=== PATIENT | female | born 1945 | race African-American/Black ===

== ENCOUNTER → 2016-04-30 | Outpatient (CLI) | payer MEDICARE, MEDICAID ==
[~2016-04-30] MED LIST: ASPI81CH43 PO; Alprazolam PO; Atorvastatin Calcium PO; CITA20TA3 PO; ENA10T PO; FURO20TA PO; MET50T PO; METF-312 PO; PANT40TA2 PO
[2016-04-30 13:30] LABS: Basophils # (auto) 0 uL; Basophils % (auto) 0.5 % (0.0-2.0); Eosinophils # (auto) 0.1 uL; Eosinophils % (auto) 1.2 % (0.0-7.0); Hematocrit 35.3 % (36.0-46.0); Hemoglobin 11.7 g/dL (12.2-16.2); Lymphocytes # (auto) 2.1 uL; Lymphocytes % (auto) 44.6 % (10.0-50.0); Mean Corpuscular Hemoglobin 30.1 pg (28.0-32.0); Mean Corpuscular Hgb Conc. 33.2 g/dL (32.0-36.0); Mean Corpuscular Volume 90.9 fL (80.0-100.0); Monocytes # (auto) 0.2 uL; Monocytes % (auto) 5.1 % (0.0-12.0); Neutrophils # (auto) 2.3 uL; Neutrophils % (auto) 48.6 % (37.0-80.0); Platelet Count (auto) 319 10^3/uL (140-450); Red Cell Distribution Width 15.6 % (11.6-16.0); White Blood Cell 4.7 10^3/uL (4.4-10.8)
[2016-04-30 14:37] LABS: Albumin 3.4 g/dL (3.4-5.0); Alkaline Phosphatase 74 U/L (45-117); Anion Gap 10 (5-15); Aspartate Aminotransferase 14 U/L (15-37); BUN/Creatinine Ratio 11.5; Bilirubin, Total 0.6 mg/dL (0.2-1.0); Blood Urea Nitrogen 7 mg/dL (7-18); Calcium 9.2 mg/dL (8.5-10.1); Carbon Dioxide 30 mmol/L (21-32); Chloride 107 mmol/L (98-107); GFR African American 124 mL/min; GFR Non-African American 102 mL/min; Glucose 77 mg/dL (74-106); Potassium 4.1 mmol/L (3.5-5.1); Sodium 147 mmol/L (136-145); Total Protein 6.7 g/dL (6.4-8.2)
== END | disposition home or self-care (01) ==
LOC: LAB 11:23
PROVIDERS: ATTEND Internal Medicine
DX: E10.9 Type 1 diabetes mellitus without complications (principal)
CPT/HCPCS: 36415; 80053; 82607; 83036; 83540; 84443; 84484; 85025

== ENCOUNTER → 2016-06-21 | Outpatient (CLI) | payer MEDICARE, MEDICAID ==
[2016-06-21 16:45] LABS: Basophils # (auto) 0.1 uL; Basophils % (auto) 1.2 % (0.0-2.0); Eosinophils # (auto) 0.1 uL; Hematocrit 35.9 % (36.0-46.0); Lymphocytes # (auto) 2.7 uL; Lymphocytes % (auto) 47.5 % (10.0-50.0); Mean Corpuscular Hemoglobin 29.8 pg (28.0-32.0); Mean Corpuscular Hgb Conc. 33.4 g/dL (32.0-36.0); Mean Corpuscular Volume 89.3 fL (80.0-100.0); Mean Platelet Volume 9.1 fL (7.4-10.4); Monocytes # (auto) 0.2 uL; Monocytes % (auto) 4.3 % (0.0-12.0); Neutrophils # (auto) 2.6 uL; Platelet Count (auto) 296 10^3/uL (140-450); Red Cell Distribution Width 14.4 % (11.6-16.0); White Blood Cell 5.7 10^3/uL (4.4-10.8)
[2016-06-21 17:13] LABS: Albumin 3.7 g/dL (3.4-5.0); Alkaline Phosphatase 75 U/L (45-117); Anion Gap 10 (5-15); Aspartate Aminotransferase 20 U/L (15-37); Bilirubin, Total 0.8 mg/dL (0.2-1.0); Blood Urea Nitrogen 7 mg/dL (7-18); Calcium 9.3 mg/dL (8.5-10.1); Carbon Dioxide 28 mmol/L (21-32); Chloride 105 mmol/L (98-107); GFR African American 106 mL/min; GFR Non-African American 87 mL/min; Glucose 138 mg/dL (74-106); Potassium 4.3 mmol/L (3.5-5.1); Sodium 143 mmol/L (136-145); Total Protein 7.5 g/dL (6.4-8.2)
== END | disposition home or self-care (01) ==
LOC: LAB 16:00
PROVIDERS: ATTEND Internal Medicine Cardiovascular Disease
DX: R07.89 Other chest pain (principal)
CPT/HCPCS: 36415; 80053; 84484; 85025; 85379

== ENCOUNTER 2016-08-09 07:54 | Day surgery (SDC) | payer MEDICARE, MEDICAID ==
[2016-08-05 12:42] LABS: Basophils # (auto) 0 uL; Basophils % (auto) 0.2 % (0.0-2.0); Eosinophils # (auto) 0 uL; Eosinophils % (auto) 0.7 % (0.0-7.0); Hematocrit 35.9 % (36.0-46.0); Hemoglobin 12.5 g/dL (12.2-16.2); Lymphocytes # (auto) 2.3 uL; Lymphocytes % (auto) 47.6 % (10.0-50.0); Mean Corpuscular Hgb Conc. 34.8 g/dL (32.0-36.0); Mean Platelet Volume 9.3 fL (7.4-10.4); Monocytes # (auto) 0.2 uL; Monocytes % (auto) 3.5 % (0.0-12.0); Neutrophils # (auto) 2.3 uL; Platelet Count (auto) 258 10^3/uL (140-450); Red Cell Distribution Width 14.2 % (11.6-16.0); White Blood Cell 4.9 10^3/uL (4.4-10.8)
[2016-08-05 12:53] LABS: INR 0.92 (0.9-1.15); Partial Thromboplastin Time 24.1 sec (22.64-33.71)
[~2016-08-09] VITALS: Ht 160 cm; Wt 71.7 kg
[~2016-08-09 07:54] MED LIST changes: +ATOR10TA52 PO; -Alprazolam PO; -Atorvastatin Calcium PO; -CITA20TA3 PO; +CLON05T PO; +CYAN500T15 PO; -ENA10T PO; +HYDR-4663 PO; -MET50T PO; -METF-312 PO; +METF-370 PO; +METO25TA5 PO; +RISP0.5T45 PO; +SERT-274 PO; +SUCR1TAB38 OR; +TRAZ150T79 PO
[2016-08-09 10:04] LABS: BUN/Creatinine Ratio 12.5; Calcium 9.2 mg/dL (8.5-10.1); Potassium 3.7 mmol/L (3.5-5.1)
[2016-08-09] MEDS ORDERED: ONDANSETRON HCL 4 MG/2 ML VIAL IV ONE (11:10)
[2016-08-09] MEDS ORDERED: KETAMINE HCL 1 ML ONE ×2 (11:10→11:13)
[2016-08-09] MEDS ORDERED: DEXAMETHASONE SOD PHOS 10MG/1ML VIAL INJ IV ONE (11:10)
[2016-08-09] MEDS ORDERED: KETOROLAC TROMETH 60MG/2ML VIAL IM ONE (11:10)
[2016-08-09 12:14] VITALS: BP 155/90
== END 2016-08-09 12:24 | disposition home or self-care (01) ==
LOC: GI 07:54
PROVIDERS: ATTEND Internal Medicine Gastroenterology
PROC: 0DJ08ZZ Inspection of Upper Intestinal Tract, Via Natural or Artificial Opening Endoscopic (ICD-10-PCS; principal; 2016-08-09 11:10)
DX: R10.13 Epigastric pain (principal); Z95.0 Presence of cardiac pacemaker; Z90.710 Acquired absence of both cervix and uterus; E11.9 Type 2 diabetes mellitus without complications; F31.9 Bipolar disorder, unspecified; F32.9 Major depressive disorder, single episode, unspecified; F41.9 Anxiety disorder, unspecified
CPT/HCPCS: 36415; 43235; 80048; 85025; 85610; 85730; J1100; J1885; J2405; J7030

== ENCOUNTER → 2016-09-02 | Outpatient (CLI) | payer MEDICARE, MEDICAID ==
[2016-09-02 14:17] LABS: Basophils # (auto) 0 uL; Basophils % (auto) 0.5 % (0.0-2.0); CONDITION Y; Eosinophils # (auto) 0 uL; Eosinophils % (auto) 0.7 % (0.0-7.0); Hematocrit 34.8 % (36.0-46.0); Hemoglobin 11.9 g/dL (12.2-16.2); Lymphocytes % (auto) 48.9 % (10.0-50.0); Mean Corpuscular Hemoglobin 30.8 pg (28.0-32.0); Mean Corpuscular Volume 90.5 fL (80.0-100.0); Mean Platelet Volume 9.4 fL (7.4-10.4); Monocytes # (auto) 0.3 uL; Monocytes % (auto) 5.2 % (0.0-12.0); Neutrophils # (auto) 2.8 uL; Neutrophils % (auto) 44.7 % (37.0-80.0); Platelet Count (auto) 235 10^3/uL (140-450); Red Cell Distribution Width 14.4 % (11.6-16.0); SUSPECT SEE PRINTOUT; White Blood Cell 6.2 10^3/uL (4.4-10.8)
[2016-09-02 14:24] LABS: Albumin 3.5 g/dL (3.4-5.0); BUN/Creatinine Ratio 10.6; Bilirubin, Total 0.4 mg/dL (0.2-1.0); Calcium 8.8 mg/dL (8.5-10.1); Potassium 3.5 mmol/L (3.5-5.1); Total Protein 6.6 g/dL (6.4-8.2)
== END | disposition home or self-care (01) ==
LOC: LAB 13:36
PROVIDERS: ATTEND Internal Medicine
DX: E11.9 Type 2 diabetes mellitus without complications (principal); I10 Essential (primary) hypertension
CPT/HCPCS: 36415; 80053; 83036; 85025; 85379

== ENCOUNTER 2020-01-20 10:01 | Inpatient (IN) | payer MEDICAID, MEDICARE ==
[~2020-01-20] VITALS: Ht 165.1 cm; Wt 83.0 kg
[~2020-01-20 10:01] MED LIST changes: +AMLO-483 PO; +ASPI81CH43 GT; +CLON0.5T3 PO; -CLON05T PO; +DOCU100T15 PO; +DONE5TAB31 PO; +FURO1TAB33 PO; -FURO20TA PO; +FURO20TA3 PO; -HYDR-4663 PO; +HYDR-4833 PO; +LORA0.5T20 PO; +SUCR1TAB22 OR; -SUCR1TAB38 OR; -TRAZ150T79 PO; +TRAZ1TAB12 PO
[2020-01-20 11:17] LABS: Basophils # (auto) 0 10 ^3/uL (0-0.2); Basophils % (auto) 0.1 % (0.0-2.0); Eosinophils # (auto) 0 10 ^3/uL (0-0.8); Hematocrit 33.8 % (36.0-46.0); Hemoglobin 11.1 g/dL (12.2-16.2); Lymphocytes # (auto) 1.3 10 ^3/uL (0.4-5.4); Lymphocytes % (auto) 22.6 % (10.0-50.0); Mean Corpuscular Hemoglobin 29.2 pg (28.0-32.0); Mean Corpuscular Hgb Conc. 32.9 g/dL (32.0-36.0); Mean Corpuscular Volume 88.7 fL (80.0-100.0); Monocytes # (auto) 0.5 10 ^3/uL (0-1.3); Neutrophils # (auto) 3.9 10 ^3/uL (1.6-8.6); Neutrophils % (auto) 69.3 % (37.0-80.0); Platelet Count (auto) 240 10^3/uL (140-450); Red Blood Cells 3.81 10^6/uL (4.0-5.20); Red Cell Distribution Width 15.4 % (11.8-14.3); White Blood Cell 5.6 10^3/uL (4.4-10.8)
[2020-01-20] MEDS ORDERED: PANTOPRAZOLE 40 MG/10 ML VIAL INJ IV ONE (11:30)
[2020-01-20] MEDS ORDERED: DOXYCYCLINE 100MG/250ML 250 ML IV ONE (11:30)
[2020-01-20] MEDS ORDERED: DexAMETHasone SOD PHOS 10MG/1ML VIAL INJ IV ONE (11:30)
[2020-01-20 11:35] LABS: Lactic Acid w/Reflex 2.9 mmol/L (0.4-2.0)
[2020-01-20 11:43] LABS: Albumin 3.2 g/dL (3.4-5.0); Anion Gap 7 (5-15); Blood Urea Nitrogen 9 mg/dL (7-18); Calcium 8.3 mg/dL (8.5-10.1); Carbon Dioxide 21 mmol/L (21-32); Chloride 104 mmol/L (98-107); Glucose 163 mg/dL (74-106); Potassium 3.7 mmol/L (3.5-5.1); Sodium 132 mmol/L (136-145)
[2020-01-20 11:48] LABS: Alanine Aminotransferase 21 U/L (13-56); Alkaline Phosphatase 57 U/L (45-117); Aspartate Aminotransferase 21 U/L (15-37); BUN/Creatinine Ratio 11.8; Bilirubin, Total 0.4 mg/dL (0.2-1.0); GFR African American 95 mL/min; GFR Non-African American 79 mL/min; Total Protein 6.9 g/dL (6.4-8.2)
[2020-01-20] MEDS ORDERED: ONDANSETRON HCL 4 MG/2 ML VIAL IV PRN (12:15)
[2020-01-20] MEDS ORDERED: ACETAMINOPHEN 500 MG TAB PO PRN (12:15)
[2020-01-20] MEDS ORDERED: DOCUSATE SOD 100 MG CAP PO PRN (12:15)
[2020-01-20] MEDS: SODIUM CHLORIDE 0.9% 1,000 ML IV SCH ×2 (13:37→23:02)
[2020-01-20] MEDS: ALBUTEROL SULF HFA 90MCG INH 200DOSE IN SCH ×2 (14:00→22:11)
[2020-01-20] MEDS: DOXYCYCLINE 100MG/250ML 250 ML IV SCH (22:55)
[2020-01-21 03:54] VITALS: BP 154/61
[2020-01-21] MEDS: ALBUTEROL SULF HFA 90MCG INH 200DOSE IN SCH ×3 (06:00→22:28)
[2020-01-21] MEDS: SODIUM CHLORIDE 0.9% 1,000 ML IV SCH (08:15)
[2020-01-21 08:32] LABS: Basophils # (auto) 0 10 ^3/uL (0-0.2); Basophils % (auto) 0.5 % (0.0-2.0); Eosinophils # (auto) 0 10 ^3/uL (0-0.8); Hematocrit 32.8 % (36.0-46.0); Hemoglobin 10.8 g/dL (12.2-16.2); Lymphocytes # (auto) 1.1 10 ^3/uL (0.4-5.4); Mean Corpuscular Hemoglobin 28.7 pg (28.0-32.0); Mean Corpuscular Volume 86.8 fL (80.0-100.0); Monocytes # (auto) 0.4 10 ^3/uL (0-1.3); Monocytes % (auto) 9.6 % (0.0-12.0); Neutrophils # (auto) 3.1 10 ^3/uL (1.6-8.6); Neutrophils % (auto) 65.9 % (37.0-80.0); Nucleated Red Blood Cells % 0.1 %; Platelet Count (auto) 244 10^3/uL (140-450); Red Blood Cells 3.78 10^6/uL (4.0-5.20); Red Cell Distribution Width 14.9 % (11.8-14.3); White Blood Cell 4.6 10^3/uL (4.4-10.8)
[2020-01-21 08:54] LABS: Albumin 3.1 g/dL (3.4-5.0); BUN/Creatinine Ratio 13.1; Bilirubin, Total 0.4 mg/dL (0.2-1.0); Calcium 8.7 mg/dL (8.5-10.1); Potassium 3.9 mmol/L (3.5-5.1); Total Protein 6.7 g/dL (6.4-8.2)
[2020-01-21] MEDS: ASCORBIC ACID 1,000 MG TAB PO SCH (09:27)
[2020-01-21] MEDS: ZINC SULFATE 220mg CAP or TAB PO SCH (09:27)
[2020-01-21] MEDS: ENOXAPARIN SOD 40 MG/0.4 ML SYRINGE SC SCH (09:27)
[2020-01-21] MEDS: DOXYCYCLINE 100MG/250ML 250 ML IV SCH ×2 (09:27→23:44)
[2020-01-21] MEDS ORDERED: HYDROcodone-ACET 10/325MG TAB PO ONE (14:30)
[2020-01-21] MEDS ORDERED: CHOLECALCIFEROL (VITD3) 2,000 UNIT CAP PO ONE (14:45)
[2020-01-21] MEDS ORDERED: metroNIDAZOLE 500 MG TAB PO ONE (14:45)
[2020-01-21] MEDS ORDERED: DEXTROSE (50%) 50ML SYRG IV PRN (14:45)
[2020-01-21] MEDS ORDERED: BUDESONIDE (INHALATION) 0.5 MG/2 ML NEB NEB ONE (15:00)
[2020-01-21] MEDS: InsuLIN REG 1unit/0.01ml Soln (100units/ml) SC SCH (18:00)
[2020-01-21] MEDS: ACCU-CHEK COMFORT CURVE STRIP VI SCH (18:11)
[2020-01-21] MEDS ORDERED: BUDESONIDE (INHALATION) 0.5 MG/2 ML NEB NEB SCH (22:00)
[2020-01-21] MEDS: BUDESONIDE (INHALATION) 180 MCG IH IN SCH (22:28)
[2020-01-21] MEDS: ATORVASTATIN 20 MG TAB PO SCH (23:45)
[2020-01-21] MEDS: metroNIDAZOLE 500 MG TAB PO SCH (23:45)
[2020-01-22] VITALS (7 sets, daily range): BP systolic 104–145; BP diastolic 55–81
[2020-01-22] MEDS: ACCU-CHEK COMFORT CURVE STRIP VI SCH ×3 (00:07→11:22)
--- NOTE | 2020-01-22 00:30 | NUR ---
Telemetry admit from ER MARTIN WISE admitted to Telemetry unit. Patient oriented to Yuridia Levy RN primary RN, unit, room, bed, and unit policies regarding patient care and visiting hours. Patient now on continuous telemetry monitoring, tele box #25. Patient placed on bedside oxygen, weighed by bed scale and encouraged to call if they need something. All questions and concerns addressed, patient verbalized understanding. Bed is in lowest locked position with bed rails up x2 and call light is within reach. Bed alarm is armed.
[2020-01-22] MEDS: ACETAMINOPHEN 325 MG TAB PO PRN (00:55)
[2020-01-22] MEDS: metroNIDAZOLE 500 MG TAB PO SCH ×3 (05:30→21:24)
[2020-01-22] MEDS: InsuLIN REG 1unit/0.01ml Soln (100units/ml) SC SCH ×3 (05:44→11:21)
[2020-01-22] MEDS: BUDESONIDE (INHALATION) 180 MCG IH IN SCH ×2 (06:08→22:20)
[2020-01-22] MEDS: ALBUTEROL SULF HFA 90MCG INH 200DOSE IN SCH ×3 (06:08→22:20)
--- NOTE | 2020-01-22 08:30 | NUR ---
Respiratory note: PT FIO2 TITRATED TO 1L NASAL CANNULA. PT TOLERATED CHANGE WELL. SPO2 96%, HR 72, RR 20. RN AWARE. WILL CONTINUE TO MONITOR PT.
[2020-01-22] MEDS: ZINC SULFATE 220mg CAP or TAB PO SCH (11:18)
[2020-01-22] MEDS: ASPirin 81 mg TAB PO SCH (11:18)
[2020-01-22] MEDS: FLORASTOR (S. BOULARDII) 250 MG CAP PO SCH (11:18)
[2020-01-22] MEDS: DOXYCYCLINE 100MG/250ML 250 ML IV SCH ×2 (11:18→21:24)
[2020-01-22] MEDS: amLODIPine BESYLATE 5 MG TAB PO SCH (11:19)
[2020-01-22] MEDS: ASCORBIC ACID 1,000 MG TAB PO SCH (11:19)
[2020-01-22] MEDS: CYANOCOBALAMIN 500 MCG TAB PO SCH (11:19)
[2020-01-22] MEDS: SERTRALINE HCL 50 MG TAB PO SCH (11:20)
[2020-01-22] MEDS: CHOLECALCIFEROL (VITD3) 2,000 UNIT CAP PO SCH (11:20)
[2020-01-22] MEDS: FAMOTIDINE 20 MG TAB PO SCH (11:20)
[2020-01-22] MEDS: ENOXAPARIN SOD 40 MG/0.4 ML SYRINGE SC SCH (11:21)
--- NOTE | 2020-01-22 12:31 | NUR ---
Nutrition Assessment Notes Please refer to link for full assessment notes. Est Energy needs: 7112-1864 kcals (20-23 kcal/kgBW) Est Protein needs: 80-88 gms/day (1.0-1.1 gm/kgBW) Will continue to monitor and reassess prn. Addendum: 01/22/20 at [address] Amended: Links added.
--- NOTE | 2020-01-22 19:40 | NUR ---
IV ACCESS ON THE LEFT AC IS INFILTRATED. REMOVED AND APPLIED A STERILE DRESSING. STARTED A NEW IV ACCESS ON THE LEFT INNER WRIST, GAUGE 24. BENIGN AND PATENT.
[2020-01-22] MEDS: ATORVASTATIN 20 MG TAB PO SCH (21:24)
[2020-01-23 05:17] VITALS: BP 138/69
[2020-01-23] MEDS: metroNIDAZOLE 500 MG TAB PO SCH (05:41)
[2020-01-23] MEDS: ACETAMINOPHEN 325 MG TAB PO PRN (05:42)
[2020-01-23 05:44] VITALS: BP 138/69
[2020-01-23 05:52] LABS: Basophils # (auto) 0 10 ^3/uL (0-0.2); Basophils % (auto) 0.2 % (0.0-2.0); Eosinophils # (auto) 0 10 ^3/uL (0-0.8); Hematocrit 36.6 % (36.0-46.0); Hemoglobin 11.8 g/dL (12.2-16.2); Lymphocytes # (auto) 1.3 10 ^3/uL (0.4-5.4); Lymphocytes % (auto) 41.4 % (10.0-50.0); Mean Corpuscular Hemoglobin 28.6 pg (28.0-32.0); Mean Corpuscular Hgb Conc. 32.3 g/dL (32.0-36.0); Mean Corpuscular Volume 88.6 fL (80.0-100.0); Monocytes # (auto) 0.5 10 ^3/uL (0-1.3); Monocytes % (auto) 17.7 % (0.0-12.0); Neutrophils # (auto) 1.2 10 ^3/uL (1.6-8.6); Neutrophils % (auto) 40.7 % (37.0-80.0); Nucleated Red Blood Cells % 0.3 %; Platelet Count (auto) 215 10^3/uL (140-450); Red Blood Cells 4.14 10^6/uL (4.0-5.20); Red Cell Distribution Width 15.2 % (11.8-14.3)
[2020-01-23 06:07] LABS: BUN/Creatinine Ratio 10.3; Calcium 8.3 mg/dL (8.5-10.1); Potassium 3.6 mmol/L (3.5-5.1)
[2020-01-23] MEDS: ALBUTEROL SULF HFA 90MCG INH 200DOSE IN SCH ×2 (06:59→13:35)
[2020-01-23] MEDS: BUDESONIDE (INHALATION) 180 MCG IH IN SCH (06:59)
--- NOTE | 2020-01-23 08:05 | NUR ---
Opening Shift Note Received report from speeder frame tender nurse Nars,Assumed care of patient, awake and alert. No S/S of distress/SOB or pain. Patient on/off nasal cannula set at 2L. Bed alarm on, bed at lowest position, call light within reach. Instructed on POC and to call for assist PRN, will continue to monitor for changes Q1hr and PRN.
[2020-01-23 08:41] VITALS: BP 124/75
[2020-01-23] MEDS: SERTRALINE HCL 50 MG TAB PO SCH (10:00)
[2020-01-23] MEDS: ASPirin 81 mg TAB PO SCH (10:00)
[2020-01-23] MEDS: FLORASTOR (S. BOULARDII) 250 MG CAP PO SCH (10:00)
[2020-01-23] MEDS: amLODIPine BESYLATE 5 MG TAB PO SCH (10:00)
[2020-01-23] MEDS: FAMOTIDINE 20 MG TAB PO SCH (10:00)
[2020-01-23] MEDS: ASCORBIC ACID 1,000 MG TAB PO SCH (10:00)
[2020-01-23] MEDS: CYANOCOBALAMIN 500 MCG TAB PO SCH (10:00)
[2020-01-23] MEDS: DOXYCYCLINE 100MG/250ML 250 ML IV SCH (10:00)
[2020-01-23] MEDS: CHOLECALCIFEROL (VITD3) 2,000 UNIT CAP PO SCH (10:00)
[2020-01-23] MEDS: ZINC SULFATE 220mg CAP or TAB PO SCH (10:00)
[2020-01-23] MEDS: ENOXAPARIN SOD 40 MG/0.4 ML SYRINGE SC SCH (10:00)
[2020-01-23 12:24] VITALS: BP 130/63
--- NOTE | 2020-01-23 12:47 | NUR ---
MD DÍAZ AT BEDSIDE PATIENT UPDATED ON POC, PER MD PATIENT IS READY TO BE DISCHARGED WITH HOME OXYGEN. PATIENT VERBALIZED UNDERSTANDING.
--- NOTE | 2020-01-23 15:02 | NUR ---
Medicare IM Patient is on the covid unit and is covid positive. Kim ZHONG has been provided with IM for patient to sign and place in chart. Addendum: 01/23/20 at 1506 by Jessica HOOVER Amended: Links added.
--- NOTE | 2020-01-23 15:03 | NUR ---
ss consult Per ss consult dc to SNF. Per patient she is requesting to return to [facility]. MD order has been sent to [facility]. Waiting on return call now. Addendum: 01/23/20 at 1506 by Jessica HOOVER Amended: Links added.
--- NOTE | 2020-01-23 16:03 | NUR ---
re-assessment Per Tahmina at [facility] she cannot take any Covid positive patients at this time. MD order has been re-directed to [facility]. Per Tricia at [facility] she has accepted patient to room [address] Acosta is the accepting MD. Safety care transport will transport patient between 7pm and 8pm today post discharge. Patient agrees and Yovani MOREL has been notified. Addendum: 01/23/20 at 1606 by Jessica HOOVER Amended: Links added.
[2020-01-23 16:12] VITALS: BP 138/90
[2020-01-23 17:00] VITALS: BP 134/87
--- NOTE | 2020-01-23 21:30 | NUR ---
Discharge Transfers Patient is being transferred to [facility]. IV removed with catheter intact, patient tolerated well. Tele box removed and sent back. Patient is to follow up with accepting doctor at the receiving facility.
== END 2020-01-23 21:11 | DRG 177 ==
LOC: ER 10:01 → EDBD 10:01 → TELE 10:02 → TELE-E-ADS 01-21 23:52 → TELE-CENTR 01-22 19:02
PROVIDERS: ADMIT Hospitalist; ATTEND Internal Medicine
DX: U07.1 COVID-19 (principal); J12.89 Other viral pneumonia; G93.41 Metabolic encephalopathy; J96.00 Acute respiratory failure, unspecified whether with hypoxia or hypercapnia; J44.1 Chronic obstructive pulmonary disease with (acute) exacerbation; J44.0 Chronic obstructive pulmonary disease with (acute) lower respiratory infection; E44.1 Mild protein-calorie malnutrition; I10 Essential (primary) hypertension; E78.5 Hyperlipidemia, unspecified; F41.9 Anxiety disorder, unspecified; K21.9 Gastro-esophageal reflux disease without esophagitis; E66.9 Obesity, unspecified; E11.9 Type 2 diabetes mellitus without complications; F32.9 Major depressive disorder, single episode, unspecified; F03.90 Unspecified dementia, unspecified severity, without behavioral disturbance, psychotic disturbance, mood disturbance, and anxiety; Z90.710 Acquired absence of both cervix and uterus; Z95.0 Presence of cardiac pacemaker; Z68.29 Body mass index [BMI] 29.0-29.9, adult; Z86.73 Personal history of transient ischemic attack (TIA), and cerebral infarction without residual deficits; Z82.49 Family history of ischemic heart disease and other diseases of the circulatory system; Z88.1 Allergy status to other antibiotic agents; Z88.0 Allergy status to penicillin
CPT/HCPCS: 36415; 71045; 80048; 80053; 82962; 83036; 83605; 83735; 83880; 84484; 85025; 85379; 87040; 87081; 87426; 87493; 93005; 94640; 96374; 96375; 97163; 99291; C9113; G0378; J1100; J2405; J3490

== ENCOUNTER 2020-06-08 12:56 | Inpatient (IN) | payer MEDICARE, MEDICAID ==
[~2020-06-08] VITALS: Ht 170.2 cm; Wt 73.5 kg
[~2020-06-08 12:56] MED LIST changes: -DONE5TAB31 PO; +DONE5TAB80 PO; -SERT-274 PO; +SERT50TA19 PO
[2020-06-08] MEDS ORDERED: SODIUM CHLORIDE 0.9% 1,000 ML IVB ONE (13:45)
[2020-06-08 15:35] LABS: Basophils # (auto) 0.1 10 ^3/uL (0-0.2); Monocytes # (auto) 0.5 10 ^3/uL (0-1.3); Neutrophils # (auto) 2.5 10 ^3/uL (1.6-8.6); Nucleated Red Blood Cells % 0.1 %; Red Cell Distribution Width 16.2 % (11.8-14.3); White Blood Cell 6.1 10^3/uL (4.4-10.8)
[2020-06-08 15:37] LABS: Basophils % (auto) 0.8 % (0.0-2.0); Eosinophils # (auto) 0 10 ^3/uL (0-0.8); Eosinophils % (auto) 0.8 % (0.0-7.0); Hematocrit 36.1 % (36.0-46.0); Hemoglobin 11.9 g/dL (12.2-16.2); Lymphocytes % (auto) 48.9 % (10.0-50.0); Mean Corpuscular Hgb Conc. 32.9 g/dL (32.0-36.0); Monocytes % (auto) 8.4 % (0.0-12.0); Neutrophils % (auto) 41.1 % (37.0-80.0)
[2020-06-08 15:41] LABS: Urine WBC None Seen /hpf (0 - 5)
[2020-06-08 15:50] LABS: INR 1.03 (0.9-1.15); Partial Thromboplastin Time 28.1 sec (23.0-31.2)
[2020-06-08 15:54] LABS: Albumin 3.5 g/dL (3.4-5.0); Amylase 88 U/L (25-115); Anion Gap 8 (5-15); Blood Urea Nitrogen 15 mg/dL (7-18); Calcium 9.3 mg/dL (8.5-10.1); Carbon Dioxide 25 mmol/L (21-32); Chloride 107 mmol/L (98-107); Glucose 75 mg/dL (74-106); Lipase 101 U/L (73-393); Magnesium 2.8 mg/dL (1.6-2.6); Sodium 140 mmol/L (136-145)
[2020-06-08 15:55] LABS: Urine Amorphous Crystal FEW /hpf (None Seen); Urine Bacteria NONE SEEN /hpf (None Seen); Urine Blood Negative /uL (Negative); Urine Specific Gravity 1.012 (1.001-1.035)
[2020-06-08 16:01] LABS: Alanine Aminotransferase 19 U/L (13-56); Alkaline Phosphatase 60 U/L (45-117); Aspartate Aminotransferase 17 U/L (15-37); BUN/Creatinine Ratio 26.8; Bilirubin, Total 0.5 mg/dL (0.2-1.0); GFR African American 135 mL/min; GFR Non-African American 112 mL/min; Total Protein 7.1 g/dL (6.4-8.2)
[2020-06-08] MEDS ORDERED: TEMAZEPAM 15 MG CAP PO PRN (20:45)
[2020-06-08] MEDS ORDERED: ONDANSETRON HCL 4 MG/2 ML VIAL IV PRN (20:45)
[2020-06-08 22:00] VITALS: BP 140/70
[2020-06-08] MEDS ORDERED: FAMOTIDINE 20 MG TAB PO SCH (22:00)
[2020-06-08 22:30] VITALS: BP 134/70
[2020-06-09] MEDS: ATORVASTATIN 20 MG TAB PO SCH ×2 (00:02→22:08)
[2020-06-09] MEDS: DONEPEZIL HYDROCHLORIDE 5 MG TAB PO SCH ×2 (00:03→22:07)
[2020-06-09] MEDS: METOPROLOL TARTRATE 25 MG TAB PO SCH ×3 (00:03→22:00)
[2020-06-09] MEDS ORDERED: ONDA-144 PO (00:35)
[2020-06-09] MEDS ORDERED: ALPR0.5T7 PO (00:35)
[2020-06-09] MEDS ORDERED: CYA100I PO (00:50)
[2020-06-09] MEDS ORDERED: SERT50TA PO (00:51)
[2020-06-09] MEDS ORDERED: DONE5TAB11 PO (00:51)
[2020-06-09] MEDS ORDERED: ACE650RS PO (00:51)
[2020-06-09] MEDS ORDERED: BISA10SU45 RE (00:51)
[2020-06-09] MEDS ORDERED: ALBUAER3 IN (00:51)
[2020-06-09] MEDS ORDERED: MOMLQ PO (00:51)
[2020-06-09] MEDS ORDERED: OMEP-434 PO (00:51)
[2020-06-09] MEDS ORDERED: ASCO500T11 PO (00:51)
[2020-06-09] MEDS ORDERED: CHOLTAB14 PO (00:51)
[2020-06-09 05:30] VITALS: BP 141/75
[2020-06-09 07:23] LABS: Basophils # (auto) 0 10 ^3/uL (0-0.2); Eosinophils # (auto) 0.1 10 ^3/uL (0-0.8); Eosinophils % (auto) 1.1 % (0.0-7.0); Hemoglobin 11.6 g/dL (12.2-16.2); Monocytes # (auto) 0.4 10 ^3/uL (0-1.3)
[2020-06-09 07:26] LABS: Basophils % (auto) 0.5 % (0.0-2.0); Hematocrit 35.2 % (36.0-46.0); Lymphocytes # (auto) 2.4 10 ^3/uL (0.4-5.4); Lymphocytes % (auto) 48.1 % (10.0-50.0); Mean Corpuscular Hemoglobin 26.7 pg (28.0-32.0); Mean Corpuscular Hgb Conc. 32.9 g/dL (32.0-36.0); Mean Corpuscular Volume 81.1 fL (80.0-100.0); Monocytes % (auto) 9.1 % (0.0-12.0); Neutrophils % (auto) 41.2 % (37.0-80.0); Nucleated Red Blood Cells % 0.1 %; Red Blood Cells 4.34 10^6/uL (4.0-5.20); Red Cell Distribution Width 16.5 % (11.8-14.3); White Blood Cell 4.9 10^3/uL (4.4-10.8)
[2020-06-09 07:42] LABS: BUN/Creatinine Ratio 23.6; Calcium 9.1 mg/dL (8.5-10.1); Potassium 4.4 mmol/L (3.5-5.1)
[2020-06-09 08:42] VITALS: BP 134/65
[2020-06-09] MEDS: FUROSEMIDE 20 MG TAB PO SCH (10:17)
[2020-06-09] MEDS: amLODIPine BESYLATE 5 MG TAB PO SCH (10:19)
[2020-06-09] MEDS: risperiDONE 1 MG TAB PO SCH (10:40)
[2020-06-09] MEDS: FAMOTIDINE 20 MG TAB PO SCH (10:40)
[2020-06-09] MEDS: SERTRALINE HCL 50 MG TAB PO SCH (10:41)
[2020-06-09] MEDS: ENOXAPARIN SOD 40 MG/0.4 ML SYRINGE SC SCH (10:41)
[2020-06-09 13:00] VITALS: BP 107/56
[2020-06-09 17:00] VITALS: BP 133/62
[2020-06-09 20:00] VITALS: BP 134/65
[2020-06-09] MEDS: ACETAMINOPHEN 325 MG TAB PO PRN (20:26)
[2020-06-09 22:00] VITALS: BP_SYST 119; BP_SYST 120; BP_DIAS 59; BP_DIAS 71
[2020-06-10 05:00] VITALS: BP 124/71
[2020-06-10 09:00] VITALS: BP 114/62
[2020-06-10] MEDS: FUROSEMIDE 20 MG TAB PO SCH (09:24)
[2020-06-10] MEDS: METOPROLOL TARTRATE 25 MG TAB PO SCH ×2 (09:24→22:26)
[2020-06-10] MEDS: amLODIPine BESYLATE 5 MG TAB PO SCH (09:25)
[2020-06-10] MEDS: FAMOTIDINE 20 MG TAB PO SCH (09:25)
[2020-06-10] MEDS: ENOXAPARIN SOD 40 MG/0.4 ML SYRINGE SC SCH (09:25)
[2020-06-10] MEDS: risperiDONE 1 MG TAB PO SCH (09:25)
[2020-06-10] MEDS: SERTRALINE HCL 50 MG TAB PO SCH (09:26)
[2020-06-10 13:00] VITALS: BP 125/62
[2020-06-10 17:00] VITALS: BP 126/70
[2020-06-10 22:00] VITALS: BP 115/70
[2020-06-10] MEDS: MUPIROCIN 2% OINT 15gm or 22gm EACHNOSTRI SCH (22:25)
[2020-06-10] MEDS: DONEPEZIL HYDROCHLORIDE 5 MG TAB PO SCH (22:25)
[2020-06-10] MEDS: ATORVASTATIN 20 MG TAB PO SCH (22:25)
[2020-06-11 05:30] VITALS: BP 135/75
[2020-06-11] MEDS: ACETAMINOPHEN 325 MG TAB PO PRN (05:31)
[2020-06-11 08:00] VITALS: BP 148/74
[2020-06-11 09:00] VITALS: BP 148/74
[2020-06-11] MEDS: ENOXAPARIN SOD 40 MG/0.4 ML SYRINGE SC SCH (10:30)
[2020-06-11] MEDS: FUROSEMIDE 20 MG TAB PO SCH (10:31)
[2020-06-11] MEDS: amLODIPine BESYLATE 5 MG TAB PO SCH (10:32)
[2020-06-11] MEDS: FAMOTIDINE 20 MG TAB PO SCH (10:33)
[2020-06-11] MEDS: SERTRALINE HCL 50 MG TAB PO SCH (10:34)
[2020-06-11] MEDS: risperiDONE 1 MG TAB PO SCH (10:34)
[2020-06-11] MEDS: METOPROLOL TARTRATE 25 MG TAB PO SCH (10:35)
[2020-06-11] MEDS: MUPIROCIN 2% OINT 15gm or 22gm EACHNOSTRI SCH (10:46)
[2020-06-11 13:00] VITALS: BP 138/67
[2020-06-11 15:16] VITALS: BP 138/67
[2020-06-11 17:20] VITALS: BP 86/67
[2020-08-01] MEDS ORDERED: FURO20TA3 PO (00:50)
[2020-08-01] MEDS ORDERED: ALPR0.5T PO (00:50)
[2020-08-01] MEDS ORDERED: METO25TA5 PO (00:50)
[2020-08-01] MEDS ORDERED: TEMA15CA2 PO (00:50)
[2020-08-01] MEDS ORDERED: FAMO20TA10 PO (00:50)
[2020-08-01] MEDS ORDERED: AML5T PO (00:50)
== END 2020-06-11 20:10 | DRG 392 ==
LOC: EDBD 12:56 → ER 12:59 → OVERFLOW 20:51 → WEST WING 21:57
PROVIDERS: ADMIT Nurse Practitioner; ATTEND Internal Medicine
DX: R10.9 Unspecified abdominal pain (principal); F03.90 Unspecified dementia, unspecified severity, without behavioral disturbance, psychotic disturbance, mood disturbance, and anxiety; Z20.822 Contact with and (suspected) exposure to COVID-19; J45.909 Unspecified asthma, uncomplicated; K44.9 Diaphragmatic hernia without obstruction or gangrene; E78.5 Hyperlipidemia, unspecified; F17.200 Nicotine dependence, unspecified, uncomplicated; D64.9 Anemia, unspecified; F32.9 Major depressive disorder, single episode, unspecified; F41.9 Anxiety disorder, unspecified; K21.9 Gastro-esophageal reflux disease without esophagitis; E11.9 Type 2 diabetes mellitus without complications; I10 Essential (primary) hypertension; Z74.01 Bed confinement status; Z95.0 Presence of cardiac pacemaker; I25.2 Old myocardial infarction; Z86.73 Personal history of transient ischemic attack (TIA), and cerebral infarction without residual deficits; Z86.16 Personal history of COVID-19; Z87.01 Personal history of pneumonia (recurrent); Z90.710 Acquired absence of both cervix and uterus; Z82.49 Family history of ischemic heart disease and other diseases of the circulatory system; Z88.1 Allergy status to other antibiotic agents; Z88.0 Allergy status to penicillin; Z88.8 Allergy status to other drugs, medicaments and biological substances; Z79.899 Other long term (current) drug therapy; Z79.82 Long term (current) use of aspirin
CPT/HCPCS: 36415; 71045; 74176; 76705; 80048; 80053; 81001; 82150; 82306; 82962; 83036; 83690; 83735; 84443; 84484; 85025; 85610; 85730; 87081; 87426; 93005; 96360; G0378

== ENCOUNTER 2021-03-25 00:46 | Emergency (ER) | payer MEDICARE, MEDICAID ==
[~2021-03-25] VITALS: Ht 167.6 cm; Wt 99.8 kg
[~2021-03-25 00:46] MED LIST changes: +ALPR0.5T PO; +AML5T PO; -AMLO-483 PO; -ASPI81CH43 GT; -ASPI81CH43 PO; -CLON0.5T3 PO; -CYAN500T15 PO; -DOCU100T15 PO; +DONE5TAB11 PO; -DONE5TAB80 PO; +FAMO20TA10 PO; -FURO1TAB33 PO; -HYDR-4833 PO; -LORA0.5T20 PO; -METF-370 PO; -PANT40TA2 PO; -RISP0.5T45 PO; +SERT50TA PO; -SERT50TA19 PO; -SUCR1TAB22 OR; +TEMA15CA2 PO; -TRAZ1TAB12 PO
[2021-03-25 03:03] LABS: Basophils # (auto) 0.1 10 ^3/uL (0-0.2); Basophils % (auto) 1.3 % (0.0-2.0); Eosinophils # (auto) 0.2 10 ^3/uL (0-0.8); Hematocrit 40.8 % (36.0-46.0); Hemoglobin 13.1 g/dL (12.2-16.2); Lymphocytes # (auto) 1.2 10 ^3/uL (0.4-5.4); Lymphocytes % (auto) 15.7 % (10.0-50.0); Mean Corpuscular Hgb Conc. 32.2 g/dL (32.0-36.0); Mean Corpuscular Volume 90.2 fL (80.0-100.0); Monocytes # (auto) 0.4 10 ^3/uL (0-1.3); Monocytes % (auto) 5.5 % (0.0-12.0); Neutrophils # (auto) 5.8 10 ^3/uL (1.6-8.6); Neutrophils % (auto) 75.5 % (37.0-80.0); Nucleated Red Blood Cells % 0.2 %; Red Blood Cells 4.52 10^6/uL (4.0-5.20); White Blood Cell 7.7 10^3/uL (4.4-10.8)
[2021-03-25 03:23] LABS: Albumin 3.3 g/dL (3.4-5.0); BUN/Creatinine Ratio 16.2; Calcium 9.2 mg/dL (8.5-10.1); Potassium 4.4 mmol/L (3.5-5.1)
[2021-03-25 03:26] LABS: Bilirubin, Total 0.5 mg/dL (0.2-1.0); Total Protein 7.6 g/dL (6.4-8.2)
[2021-03-25 09:00] VITALS: BP 144/63
== END 2021-03-25 11:09 | disposition home or self-care (01) ==
LOC: EDBD 00:46 → ER 00:46
DX: S40.012A Contusion of left shoulder, initial encounter (principal); I11.0 Hypertensive heart disease with heart failure; I50.9 Heart failure, unspecified; E11.9 Type 2 diabetes mellitus without complications; E78.5 Hyperlipidemia, unspecified; Z86.73 Personal history of transient ischemic attack (TIA), and cerebral infarction without residual deficits; Z88.0 Allergy status to penicillin; Z88.1 Allergy status to other antibiotic agents; Z90.710 Acquired absence of both cervix and uterus; W01.0XXA Fall on same level from slipping, tripping and stumbling without subsequent striking against object, initial encounter; Y93.89 Activity, other specified; Y92.89 Other specified places as the place of occurrence of the external cause; Y99.8 Other external cause status
CPT/HCPCS: 36415; 70450; 71045; 72125; 72170; 73030; 73060; 73502; 80053; 84484; 85025; 93005

== ENCOUNTER 2021-08-03 07:41 | Inpatient (IN) | payer MEDICARE, MEDICAID ==
[~2021-08-03] VITALS: Ht 160 cm; Wt 88.2 kg
[2021-08-03] MEDS ORDERED: cefTRIAXone 1GM/50ML D5W 50 ML IV ONE (08:00)
[2021-08-03 08:59] LABS: Basophils # (auto) 0.1 10 ^3/uL (0-0.2); Basophils % (auto) 2.2 % (0.0-2.0); Eosinophils # (auto) 0.2 10 ^3/uL (0-0.8); Eosinophils % (auto) 5.3 % (0.0-7.0); Hematocrit 33.3 % (36.0-46.0); Hemoglobin 11.3 g/dL (12.2-16.2); Lymphocytes # (auto) 1.5 10 ^3/uL (0.4-5.4); Mean Corpuscular Hemoglobin 29.8 pg (28.0-32.0); Mean Corpuscular Volume 87.4 fL (80.0-100.0); Monocytes # (auto) 0.4 10 ^3/uL (0-1.3); Monocytes % (auto) 11.1 % (0.0-12.0); Neutrophils # (auto) 1.6 10 ^3/uL (1.6-8.6); Neutrophils % (auto) 41.4 % (37.0-80.0); Nucleated Red Blood Cells % 0.5 %; Red Blood Cells 3.81 10^6/uL (4.0-5.20); Red Cell Distribution Width 14.4 % (11.8-14.3); White Blood Cell 3.8 10^3/uL (4.4-10.8)
[2021-08-03] MEDS ORDERED: levoFLOXacin 500MG 100 ML IV ONE (09:00)
[2021-08-03 09:05] LABS: Calcium 8.5 mg/dL (8.5-10.1); Potassium 3.8 mmol/L (3.5-5.1)
[2021-08-03 09:08] LABS: BUN/Creatinine Ratio 16.9; Bilirubin, Total 0.5 mg/dL (0.2-1.0); Total Protein 6.6 g/dL (6.4-8.2)
[2021-08-03] MEDS ORDERED: SODIUM CHLORIDE 0.9% 500 ML IV ONE (15:45)
[2021-08-03] MEDS ORDERED: DEXTROSE (50%) 50ML SYRG IV PRN (15:45)
[2021-08-03] MEDS ORDERED: hydrALAZINE HCL 20 MG/ML VL IV PRN (16:15)
[2021-08-03 16:22] LABS: Cholesterol 154 mg/dL (< 200); Triglycerides 64 mg/dL (< 150)
[2021-08-03 16:24] LABS: HDL Cholesterol 73 mg/dL (40-59); LDL Cholesterol 82 mg/dL (< 100)
[2021-08-03] MEDS: InsuLIN REG 1unit/0.01ml Soln (100units/ml) SC SCH ×2 (17:00→21:46)
[2021-08-03] MEDS: ACCU-CHEK COMFORT CURVE STRIP VI SCH ×2 (18:05→21:46)
[2021-08-04] MEDS: InsuLIN REG 1unit/0.01ml Soln (100units/ml) SC SCH ×3 (07:00→22:00)
[2021-08-04 07:03] LABS: BUN/Creatinine Ratio 16.1; Calcium 8.7 mg/dL (8.5-10.1); Potassium 4.2 mmol/L (3.5-5.1)
[2021-08-04 07:05] LABS: Basophils # (auto) 0 10 ^3/uL (0-0.2); Basophils % (auto) 0.5 % (0.0-2.0); Eosinophils # (auto) 0.2 10 ^3/uL (0-0.8); Hematocrit 33.5 % (36.0-46.0); Hemoglobin 11.4 g/dL (12.2-16.2); Lymphocytes # (auto) 2.6 10 ^3/uL (0.4-5.4); Lymphocytes % (auto) 39.6 % (10.0-50.0); Mean Corpuscular Hemoglobin 29.8 pg (28.0-32.0); Mean Corpuscular Hgb Conc. 34.1 g/dL (32.0-36.0); Mean Corpuscular Volume 87.6 fL (80.0-100.0); Monocytes # (auto) 0.6 10 ^3/uL (0-1.3); Monocytes % (auto) 9.4 % (0.0-12.0); Neutrophils # (auto) 3.1 10 ^3/uL (1.6-8.6); Neutrophils % (auto) 47.5 % (37.0-80.0); Nucleated Red Blood Cells % 0.2 %; Red Blood Cells 3.83 10^6/uL (4.0-5.20); Red Cell Distribution Width 14.6 % (11.8-14.3); White Blood Cell 6.5 10^3/uL (4.4-10.8)
[2021-08-04] MEDS: ACCU-CHEK COMFORT CURVE STRIP VI SCH ×3 (07:06→22:42)
[2021-08-04 07:11] LABS: Bilirubin, Total 0.7 mg/dL (0.2-1.0); Total Protein 6.4 g/dL (6.4-8.2)
[2021-08-04] MEDS: ENOXAPARIN SOD 40 MG/0.4 ML SYRINGE SC SCH (09:53)
[2021-08-04] MEDS ORDERED: AZITHROMYCIN 500MG/ 250ML 250 ML IV SCH (10:00)
[2021-08-04 15:14] LABS: Urine Bacteria NONE SEEN /hpf (None Seen); Urine Blood Negative /uL (Negative); Urine Hyaline Cast FEW /lpf (0 - 2); Urine Specific Gravity 1.019 (1.001-1.035); Urine WBC 15 /hpf (0 - 5)
[2021-08-04 17:00] VITALS: BP 108/37
[2021-08-04] MEDS ORDERED: FUROSEMIDE 20 MG/2 ML VIAL IV ONE (18:15)
[2021-08-04 22:00] VITALS: BP 91/58
[2021-08-04 22:32] LABS: Folate (Folic Acid) > 24.00 ng/mL (5.38-24)
[2021-08-04] MEDS ORDERED: ALBUTEROL SULF 2.5 MG/0.5ML(0.5%) NEB SOLN NEB ONE (23:00)
[2021-08-04] MEDS ORDERED: TEMAZEPAM 15 MG CAP PO ONE (23:00)
[2021-08-04] MEDS ORDERED: ALBUTEROL SULF 2.5 MG/0.5ML(0.5%) NEB SOLN ONE (23:11)
[2021-08-05 01:06] VITALS: BP 107/84
[2021-08-05] MEDS: methylPREDNISolone SOD SUCC 40 MG/ML VL IV SCH ×2 (02:25→11:03)
[2021-08-05 05:00] VITALS: BP 141/61
[2021-08-05] MEDS: InsuLIN REG 1unit/0.01ml Soln (100units/ml) SC SCH ×4 (06:39→23:11)
[2021-08-05] MEDS: ACCU-CHEK COMFORT CURVE STRIP VI SCH ×4 (06:40→23:10)
[2021-08-05 09:00] VITALS: BP 151/73
[2021-08-05] MEDS ORDERED: levoFLOXacin 500MG 100 ML IV SCH (10:00)
[2021-08-05] MEDS: FUROSEMIDE 20 MG/2 ML VIAL IV SCH (10:00)
[2021-08-05] MEDS: ENOXAPARIN SOD 40 MG/0.4 ML SYRINGE SC SCH (11:03)
[2021-08-05] MEDS ORDERED: cefTRIAXone 1GM/50ML D5W 50 ML IV ONE ×2 (11:30→11:45)
[2021-08-05 13:00] VITALS: BP 119/59
[2021-08-05] MEDS: ALBUTEROL SULF 2.5 MG/0.5ML(0.5%) NEB SOLN NEB PRN (15:20)
[2021-08-05 17:26] VITALS: BP 132/45
[2021-08-06] MEDS: ALBUTEROL SULF 2.5 MG/0.5ML(0.5%) NEB SOLN NEB PRN (01:34)
[2021-08-06] MEDS: InsuLIN REG 1unit/0.01ml Soln (100units/ml) SC SCH ×4 (06:14→21:31)
[2021-08-06] MEDS: ACCU-CHEK COMFORT CURVE STRIP VI SCH ×4 (06:14→21:31)
[2021-08-06] MEDS ORDERED: ACETAMINOPHEN 325 MG TAB PO PRN (08:15)
[2021-08-06] MEDS ORDERED: LORazepam 2MG/ML-1ML VIAL IV ONE (08:30)
[2021-08-06 09:00] VITALS: BP 128/76
[2021-08-06] MEDS ORDERED: LORazepam 2MG/ML-1ML VIAL IM ONE (09:00)
[2021-08-06] MEDS ORDERED: cefTRIAXone 1GM/50ML D5W 50 ML IV SCH ×3 (09:00)
[2021-08-06] MEDS ORDERED: AZITHROMYCIN 500MG/ 250ML 250 ML IV SCH ×2 (10:00)
[2021-08-06] MEDS: AZITHROMYCIN 500MG/ 250ML 250 ML IV SCH (11:50)
[2021-08-06] MEDS: FUROSEMIDE 20 MG/2 ML VIAL IV SCH (11:50)
[2021-08-06] MEDS: ENOXAPARIN SOD 40 MG/0.4 ML SYRINGE SC SCH (11:52)
[2021-08-06] MEDS: BENZTROPINE MESY 0.5 MG TAB PO SCH ×2 (11:52→21:40)
[2021-08-06] MEDS ORDERED: ALBUTEROL SULF 2.5 MG/0.5ML(0.5%) NEB SOLN NEB SCH (12:00)
[2021-08-06] MEDS ORDERED: IPRATROPIUM BROM 0.5 MG/2.5ML INH SOL NEB SCH (12:00)
[2021-08-06] MEDS: IPRATROPIUM BROM 0.5 MG/2.5ML INH SOL NEB SCH ×2 (12:25→17:59)
[2021-08-06] MEDS: LORazepam 0.5 MG TAB PO PRN (12:57)
[2021-08-06 13:00] VITALS: BP 119/54
[2021-08-06 17:30] VITALS: BP 133/53
[2021-08-06] MEDS: TEMAZEPAM 15 MG CAP PO SCH (21:40)
[2021-08-06 22:00] VITALS: BP 134/64
[2021-08-06] MEDS ORDERED: TEMAZEPAM 15 MG CAP PO SCH (22:00)
[2021-08-07] MEDS: IPRATROPIUM BROM 0.5 MG/2.5ML INH SOL NEB SCH ×3 (00:07→11:46)
[2021-08-07 05:08] VITALS: BP 117/72
[2021-08-07 05:57] LABS: Basophils # (auto) 0 10 ^3/uL (0-0.2); Basophils % (auto) 0.5 % (0.0-2.0); Eosinophils # (auto) 0.1 10 ^3/uL (0-0.8); Eosinophils % (auto) 0.9 % (0.0-7.0); Hematocrit 34.8 % (36.0-46.0); Lymphocytes # (auto) 2.4 10 ^3/uL (0.4-5.4); Lymphocytes % (auto) 36.2 % (10.0-50.0); Mean Corpuscular Hemoglobin 29.7 pg (28.0-32.0); Mean Corpuscular Hgb Conc. 34.4 g/dL (32.0-36.0); Mean Corpuscular Volume 86.4 fL (80.0-100.0); Monocytes # (auto) 0.6 10 ^3/uL (0-1.3); Monocytes % (auto) 9.3 % (0.0-12.0); Neutrophils # (auto) 3.5 10 ^3/uL (1.6-8.6); Neutrophils % (auto) 53.1 % (37.0-80.0); Nucleated Red Blood Cells % 0.2 %; Red Blood Cells 4.03 10^6/uL (4.0-5.20); Red Cell Distribution Width 14.2 % (11.8-14.3); White Blood Cell 6.6 10^3/uL (4.4-10.8)
[2021-08-07 05:58] LABS: Potassium 3.1 mmol/L (3.5-5.1)
[2021-08-07 06:06] LABS: BUN/Creatinine Ratio 22.2; Calcium 8.8 mg/dL (8.5-10.1)
[2021-08-07] MEDS: InsuLIN REG 1unit/0.01ml Soln (100units/ml) SC SCH ×4 (06:18→21:28)
[2021-08-07] MEDS: ACCU-CHEK COMFORT CURVE STRIP VI SCH ×4 (06:18→21:23)
[2021-08-07 09:00] VITALS: BP 132/67
[2021-08-07] MEDS: ENOXAPARIN SOD 40 MG/0.4 ML SYRINGE SC SCH (10:00)
[2021-08-07] MEDS: FUROSEMIDE 20 MG/2 ML VIAL IV SCH (10:00)
[2021-08-07] MEDS: AZITHROMYCIN 500MG/ 250ML 250 ML IV SCH (10:00)
[2021-08-07] MEDS ORDERED: IPRATROPIUM BROM 0.5 MG/2.5ML INH SOL NEB SCH (12:00)
[2021-08-07] MEDS ORDERED: ALBUTEROL SULF 2.5 MG/0.5ML(0.5%) NEB SOLN NEB PRN (12:00)
[2021-08-07] MEDS ORDERED: POTASSIUM CHL 20 Meq TABLET PO ONE (12:00)
[2021-08-07 13:00] VITALS: BP 126/57
[2021-08-07] MEDS: BENZTROPINE MESY 0.5 MG TAB PO SCH ×2 (14:10→21:21)
[2021-08-07 17:24] VITALS: BP 119/47
[2021-08-07] MEDS: ACETAMINOPHEN 325 MG TAB PO PRN (17:31)
[2021-08-07] MEDS: ONDANSETRON HCL 4 MG/2 ML VIAL IV PRN (18:43)
[2021-08-07] MEDS: KETOROLAC TROMETH 30 MG/ML 1ML VIAL IV PRN (18:44)
[2021-08-07] MEDS: PANTOPRAZOLE 40 MG TAB PO SCH (21:21)
[2021-08-07] MEDS: TEMAZEPAM 15 MG CAP PO SCH (21:22)
[2021-08-07 21:49] VITALS: BP 118/55
[2021-08-08 01:00] VITALS: BP 118/55
[2021-08-08 04:46] VITALS: BP 124/72
[2021-08-08] MEDS: ACCU-CHEK COMFORT CURVE STRIP VI SCH ×4 (06:06→21:13)
[2021-08-08] MEDS: InsuLIN REG 1unit/0.01ml Soln (100units/ml) SC SCH ×4 (06:06→21:55)
[2021-08-08 08:41] VITALS: BP 105/46
[2021-08-08] MEDS: AZITHROMYCIN 500MG/ 250ML 250 ML IV SCH (10:40)
[2021-08-08] MEDS: FUROSEMIDE 20 MG/2 ML VIAL IV SCH (10:41)
[2021-08-08] MEDS: PANTOPRAZOLE 40 MG TAB PO SCH ×2 (10:42→21:12)
[2021-08-08] MEDS: ENOXAPARIN SOD 40 MG/0.4 ML SYRINGE SC SCH (10:42)
[2021-08-08] MEDS: BENZTROPINE MESY 0.5 MG TAB PO SCH ×2 (10:42→21:12)
[2021-08-08] MEDS: KETOROLAC TROMETH 30 MG/ML 1ML VIAL IV PRN (12:21)
[2021-08-08 12:47] VITALS: BP 117/87
[2021-08-08] MEDS: ONDANSETRON HCL 4 MG/2 ML VIAL IV PRN (15:33)
[2021-08-08] MEDS: ACETAMINOPHEN 325 MG TAB PO PRN (15:36)
[2021-08-08] MEDS ORDERED: POTASSIUM EFFERVESENT TAB 25 MEQ PO ONE (16:30)
[2021-08-08 16:48] VITALS: BP 110/55
[2021-08-08] MEDS: LORazepam 0.5 MG TAB PO PRN (16:49)
[2021-08-08] MEDS ORDERED: FAMOTIDINE INJECTION 40 MG in SODIUM CHL 0.9% 100 ML IV ONE (17:15)
[2021-08-08] MEDS ORDERED: HYDROmorphone HCL 2 MG/ML VL/or syr IV ONE (17:15)
[2021-08-08] MEDS ORDERED: DICYCLOMINE HCL (10MG/ML) 2 ML AMPULE IM ONE (17:15)
[2021-08-08] MEDS ORDERED: FAMOTIDINE 20 MG TAB PO ONE (17:30)
[2021-08-08] MEDS ORDERED: IPRATROPIUM BROM 0.5 MG/2.5ML INH SOL NEB PRN (18:00)
[2021-08-08] MEDS ORDERED: ALBUTEROL SULF 2.5 MG/0.5ML(0.5%) NEB SOLN NEB PRN (18:00)
[2021-08-08] MEDS: TEMAZEPAM 15 MG CAP PO SCH (21:12)
[2021-08-08 22:00] VITALS: BP 124/52
[2021-08-09] MEDS ORDERED: DICYCLOMINE HCL (10MG/ML) 2 ML AMPULE IM PRN
[2021-08-09 05:00] VITALS: BP 114/42
[2021-08-09] MEDS: ACCU-CHEK COMFORT CURVE STRIP VI SCH ×4 (06:15→21:27)
[2021-08-09] MEDS: InsuLIN REG 1unit/0.01ml Soln (100units/ml) SC SCH ×4 (06:36→21:27)
[2021-08-09] MEDS: PANTOPRAZOLE 40 MG TAB PO SCH ×2 (08:56→21:27)
[2021-08-09 09:00] VITALS: BP 94/40
[2021-08-09] MEDS: ACETAMINOPHEN 325 MG TAB PO PRN (09:02)
[2021-08-09] MEDS: POTASSIUM EFFERVESENT TAB 25 MEQ PO SCH (10:00)
[2021-08-09] MEDS: FUROSEMIDE 20 MG/2 ML VIAL IV SCH (10:02)
[2021-08-09] MEDS: AZITHROMYCIN 500MG/ 250ML 250 ML IV SCH (10:03)
[2021-08-09] MEDS: ENOXAPARIN SOD 40 MG/0.4 ML SYRINGE SC SCH (10:04)
[2021-08-09] MEDS: BENZTROPINE MESY 0.5 MG TAB PO SCH ×2 (11:09→21:27)
[2021-08-09 13:00] VITALS: BP 95/51
[2021-08-09] MEDS: ONDANSETRON HCL 4 MG/2 ML VIAL IV PRN (14:32)
[2021-08-09 16:53] VITALS: BP 90/49
[2021-08-09] MEDS: SUCRALFATE 1 GM/10 ML ORAL SUSP PO SCH ×2 (18:51→21:27)
[2021-08-09] MEDS: TEMAZEPAM 15 MG CAP PO SCH (21:27)
[2021-08-09 22:00] VITALS: BP 143/53
[2021-08-10 05:00] VITALS: BP 131/55
[2021-08-10] MEDS: InsuLIN REG 1unit/0.01ml Soln (100units/ml) SC SCH ×3 (06:20→17:00)
[2021-08-10] MEDS: SUCRALFATE 1 GM/10 ML ORAL SUSP PO SCH ×3 (06:21→17:00)
[2021-08-10] MEDS: ACCU-CHEK COMFORT CURVE STRIP VI SCH ×3 (06:21→17:30)
[2021-08-10 09:00] VITALS: BP 126/58
[2021-08-10] MEDS: PANTOPRAZOLE 40 MG TAB PO SCH (10:35)
[2021-08-10] MEDS: BENZTROPINE MESY 0.5 MG TAB PO SCH ×2 (10:35→15:47)
[2021-08-10] MEDS: POTASSIUM EFFERVESENT TAB 25 MEQ PO SCH (10:36)
[2021-08-10] MEDS: FUROSEMIDE 20 MG/2 ML VIAL IV SCH (10:37)
[2021-08-10] MEDS: ENOXAPARIN SOD 40 MG/0.4 ML SYRINGE SC SCH (10:37)
[2021-08-10 13:00] VITALS: BP 126/88
[2021-08-10 15:11] VITALS: BP 126/58
[2021-08-10 15:25] LABS: BUN/Creatinine Ratio 14.7; Calcium 9.1 mg/dL (8.5-10.1); Potassium 4.3 mmol/L (3.5-5.1)
[2021-08-10 17:00] VITALS: BP 125/56
== END 2021-08-10 17:05 | DRG 70 ==
LOC: EDBD 07:41 → ER 07:41 → TELE 15:44 → TELE-CENTR 08-04 16:19
PROVIDERS: ADMIT Registered Nurse; ATTEND Internal Medicine
DX: G93.41 Metabolic encephalopathy (principal); E43 Unspecified severe protein-calorie malnutrition; J18.9 Pneumonia, unspecified organism; J96.01 Acute respiratory failure with hypoxia; I50.41 Acute combined systolic (congestive) and diastolic (congestive) heart failure; I13.0 Hypertensive heart and chronic kidney disease with heart failure and stage 1 through stage 4 chronic kidney disease, or unspecified chronic kidney disease; N30.00 Acute cystitis without hematuria; J44.0 Chronic obstructive pulmonary disease with (acute) lower respiratory infection; J98.11 Atelectasis; N18.2 Chronic kidney disease, stage 2 (mild); J20.9 Acute bronchitis, unspecified; E11.22 Type 2 diabetes mellitus with diabetic chronic kidney disease; K80.20 Calculus of gallbladder without cholecystitis without obstruction; F41.9 Anxiety disorder, unspecified; F03.90 Unspecified dementia, unspecified severity, without behavioral disturbance, psychotic disturbance, mood disturbance, and anxiety; E78.5 Hyperlipidemia, unspecified; Z20.822 Contact with and (suspected) exposure to COVID-19; R10.13 Epigastric pain; E66.9 Obesity, unspecified; Z68.35 Body mass index [BMI] 35.0-35.9, adult; Z86.73 Personal history of transient ischemic attack (TIA), and cerebral infarction without residual deficits; Z88.8 Allergy status to other drugs, medicaments and biological substances; Z88.1 Allergy status to other antibiotic agents; I25.2 Old myocardial infarction; Z82.49 Family history of ischemic heart disease and other diseases of the circulatory system; Z90.710 Acquired absence of both cervix and uterus; Z95.0 Presence of cardiac pacemaker; Z74.01 Bed confinement status; Z88.0 Allergy status to penicillin
CPT/HCPCS: 36415; 70450; 71045; 72192; 74176; 76705; 80048; 80053; 80061; 81001; 82607; 82746; 82962; 83036; 83880; 84443; 84484; 85025; 87070; 87081; 87086; 87205; 87804; 93005; 93306; 93886; 94640; 96365; 97163; G0378; J1815; J1885; J1956; J2405

== ENCOUNTER 2021-12-15 13:08 | Emergency (ER) | payer MEDICARE, MEDICAID ==
[~2021-12-15] VITALS: Ht 157.5 cm; Wt 72.0 kg
[2021-12-15 13:23] VITALS: BP 127/70
[2021-12-15 13:40] LABS: Basophils # (auto) 0.1 10 ^3/uL (0-0.2); Basophils % (auto) 1.2 % (0.0-2.0); Eosinophils # (auto) 0 10 ^3/uL (0-0.8); Eosinophils % (auto) 0.9 % (0.0-7.0); Hematocrit 37.1 % (36.0-46.0); Hemoglobin 12.1 g/dL (12.2-16.2); Lymphocytes # (auto) 2.4 10 ^3/uL (0.4-5.4); Lymphocytes % (auto) 47.7 % (10.0-50.0); Mean Corpuscular Hgb Conc. 32.5 g/dL (32.0-36.0); Mean Corpuscular Volume 86.1 fL (80.0-100.0); Monocytes # (auto) 0.3 10 ^3/uL (0-1.3); Monocytes % (auto) 6.4 % (0.0-12.0); Neutrophils # (auto) 2.2 10 ^3/uL (1.6-8.6); Neutrophils % (auto) 43.8 % (37.0-80.0); Red Blood Cells 4.31 10^6/uL (4.0-5.20); Red Cell Distribution Width 15.1 % (11.8-14.3)
[2021-12-15 13:58] LABS: Albumin 3.6 g/dL (3.4-5.0); Calcium 9.5 mg/dL (8.5-10.1); Potassium 4.5 mmol/L (3.5-5.1)
[2021-12-15 14:03] LABS: BUN/Creatinine Ratio 14.8; Bilirubin, Total 0.6 mg/dL (0.2-1.0); Total Protein 7.3 g/dL (6.4-8.2)
[2021-12-15] MEDS ORDERED: traMADol HCL 50 MG TAB PO ONE (17:00)
== END 2021-12-15 16:39 | disposition home or self-care (01) ==
LOC: EDBD 13:08 → ER 13:08
DX: M54.2 Cervicalgia (principal); I11.0 Hypertensive heart disease with heart failure; I50.9 Heart failure, unspecified; J44.9 Chronic obstructive pulmonary disease, unspecified; E11.9 Type 2 diabetes mellitus without complications; E78.5 Hyperlipidemia, unspecified; Z86.73 Personal history of transient ischemic attack (TIA), and cerebral infarction without residual deficits; Z95.0 Presence of cardiac pacemaker; Z90.710 Acquired absence of both cervix and uterus; Z79.899 Other long term (current) drug therapy; Z88.0 Allergy status to penicillin; Z88.1 Allergy status to other antibiotic agents; Z88.8 Allergy status to other drugs, medicaments and biological substances
CPT/HCPCS: 36415; 72125; 80053; 85025

== ENCOUNTER 2022-02-12 11:16 | Inpatient (IN) | payer MEDICARE, MEDICAID ==
[~2022-02-12] VITALS: Ht 165.1 cm; Wt 78.0 kg
[2022-02-12 12:11] LABS: Basophils # (auto) 0 10 ^3/uL (0-0.2); Basophils % (auto) 0.7 % (0.0-2.0); Eosinophils # (auto) 0.1 10 ^3/uL (0-0.8); Eosinophils % (auto) 1.5 % (0.0-7.0); Hemoglobin 12.1 g/dL (12.2-16.2); Lymphocytes # (auto) 2.3 10 ^3/uL (0.4-5.4); Mean Corpuscular Hemoglobin 28.5 pg (28.0-32.0); Mean Corpuscular Hgb Conc. 32.7 g/dL (32.0-36.0); Mean Corpuscular Volume 87.4 fL (80.0-100.0); Monocytes # (auto) 0.4 10 ^3/uL (0-1.3); Monocytes % (auto) 8.3 % (0.0-12.0); Neutrophils # (auto) 2.1 10 ^3/uL (1.6-8.6); Neutrophils % (auto) 42.5 % (37.0-80.0); Nucleated Red Blood Cells % 0.2 %; Red Blood Cells 4.24 10^6/uL (4.0-5.20); Red Cell Distribution Width 14.7 % (11.8-14.3)
[2022-02-12 12:27] LABS: Albumin 3.3 g/dL (3.4-5.0); BUN/Creatinine Ratio 24.4; Potassium 4.5 mmol/L (3.5-5.1)
[2022-02-12 12:29] LABS: Bilirubin, Total 0.5 mg/dL (0.2-1.0); Total Protein 6.9 g/dL (6.4-8.2)
[2022-02-12 13:31] LABS: Urine Bacteria NONE SEEN /hpf (None Seen); Urine Blood Negative /uL (Negative); Urine Hyaline Cast MOD /lpf (0 - 2); Urine Specific Gravity 1.016 (1.001-1.035); Urine WBC 17 /hpf (0 - 5)
[2022-02-12] MEDS ORDERED: MORPHINE SULFATE INJ 2 MG/ml SYRG IV PRN (21:00)
[2022-02-12] MEDS ORDERED: HYDROcodone-ACET 5/325MG TAB PO PRN (21:00)
[2022-02-12] MEDS ORDERED: NITROGLYCERIN 0.4 MG SL TAB SL PRN (21:00)
[2022-02-12] MEDS ORDERED: ACETAMINOPHEN 325 MG TAB PO PRN (21:00)
[2022-02-12] MEDS ORDERED: ONDANSETRON HCL 4 MG/2 ML VIAL IV PRN (21:00)
[2022-02-12] MEDS: DONEPEZIL HYDROCHLORIDE 5 MG TAB PO SCH (22:42)
[2022-02-12] MEDS: ATORVASTATIN 20 MG TAB PO SCH (22:42)
[2022-02-12] MEDS: METOPROLOL TARTRATE 25 MG TAB PO SCH (22:43)
[2022-02-12 23:10] VITALS: BP 125/59
[2022-02-13] MEDS ORDERED: SERT50TA19 PO (02:43)
[2022-02-13] MEDS ORDERED: POTA99TA5 PO (02:43)
[2022-02-13] MEDS ORDERED: FURO1TAB31 PO (02:43)
[2022-02-13] MEDS ORDERED: BENZ1TAB2 PO ×2 (02:43→04:56)
[2022-02-13] MEDS ORDERED: ALBU2TAB4 (02:45)
[2022-02-13] MEDS ORDERED: DICY20TA PO (02:46)
[2022-02-13 05:00] VITALS: BP 137/65
[2022-02-13 05:15] LABS: Basophils # (auto) 0.1 10 ^3/uL (0-0.2); Basophils % (auto) 1.1 % (0.0-2.0); Eosinophils # (auto) 0.1 10 ^3/uL (0-0.8); Eosinophils % (auto) 1.7 % (0.0-7.0); Hematocrit 36.4 % (36.0-46.0); Hemoglobin 12.1 g/dL (12.2-16.2); Lymphocytes # (auto) 2.3 10 ^3/uL (0.4-5.4); Lymphocytes % (auto) 45.3 % (10.0-50.0); Mean Corpuscular Hemoglobin 28.6 pg (28.0-32.0); Mean Corpuscular Hgb Conc. 33.3 g/dL (32.0-36.0); Mean Corpuscular Volume 85.8 fL (80.0-100.0); Monocytes # (auto) 0.4 10 ^3/uL (0-1.3); Monocytes % (auto) 8.2 % (0.0-12.0); Neutrophils # (auto) 2.2 10 ^3/uL (1.6-8.6); Neutrophils % (auto) 43.7 % (37.0-80.0); Nucleated Red Blood Cells % 0.1 %; Red Blood Cells 4.25 10^6/uL (4.0-5.20)
[2022-02-13 05:30] LABS: Potassium 4.7 mmol/L (3.5-5.1)
[2022-02-13 05:35] LABS: Albumin 3.4 g/dL (3.4-5.0); BUN/Creatinine Ratio 26.8; Bilirubin, Total 0.6 mg/dL (0.2-1.0); Calcium 9.3 mg/dL (8.5-10.1); Total Protein 6.8 g/dL (6.4-8.2)
[2022-02-13 09:00] VITALS: BP 125/63
[2022-02-13] MEDS ORDERED: amLODIPine BESYLATE 5 MG TAB PO SCH (10:00)
[2022-02-13] MEDS ORDERED: PANTOPRAZOLE 40 MG TAB PO SCH (10:00)
[2022-02-13] MEDS ORDERED: levoFLOXacin 500MG 100 ML IV SCH (10:00)
[2022-02-13] MEDS: DONEPEZIL HYDROCHLORIDE 5 MG TAB PO SCH ×2 (10:02→22:38)
[2022-02-13] MEDS: ATORVASTATIN 20 MG TAB PO SCH (10:03)
[2022-02-13] MEDS: amLODIPine BESYLATE 5 MG TAB PO SCH (10:17)
[2022-02-13] MEDS: METOPROLOL TARTRATE 25 MG TAB PO SCH ×2 (10:18→22:39)
[2022-02-13] MEDS: FUROSEMIDE 20 MG TAB PO SCH (10:18)
[2022-02-13 13:00] VITALS: BP 148/63
[2022-02-13 13:05] VITALS: BP 105/52
[2022-02-13] MEDS: SUCRALFATE 1 GM/10 ML ORAL SUSP PO SCH ×2 (16:56→22:38)
[2022-02-13] MEDS: BENZTROPINE MESY 0.5 MG TAB PO SCH ×2 (16:57→22:00)
[2022-02-13 17:00] VITALS: BP 124/67
[2022-02-13 22:00] VITALS: BP 128/62
[2022-02-13] MEDS: MUPIROCIN 2% OINT 15gm or 22gm FOR MRSA NARES EACHNOSTRI SCH (22:00)
[2022-02-13] MEDS: PANTOPRAZOLE 40 MG TAB PO SCH (22:38)
[2022-02-14] MEDS: TEMAZEPAM 15 MG CAP PO PRN (00:30)
[2022-02-14 05:00] VITALS: BP 144/66
[2022-02-14] MEDS: SUCRALFATE 1 GM/10 ML ORAL SUSP PO SCH ×4 (06:43→21:46)
[2022-02-14] MEDS: BENZTROPINE MESY 0.5 MG TAB PO SCH ×3 (06:43→21:45)
[2022-02-14 06:58] LABS: Basophils # (auto) 0 10 ^3/uL (0-0.2); Basophils % (auto) 0.4 % (0.0-2.0); Eosinophils # (auto) 0.1 10 ^3/uL (0-0.8); Eosinophils % (auto) 1.2 % (0.0-7.0); Hemoglobin 11.8 g/dL (12.2-16.2); Lymphocytes # (auto) 2.8 10 ^3/uL (0.4-5.4); Lymphocytes % (auto) 43.2 % (10.0-50.0); Mean Corpuscular Hemoglobin 27.8 pg (28.0-32.0); Mean Corpuscular Hgb Conc. 31.9 g/dL (32.0-36.0); Monocytes # (auto) 0.6 10 ^3/uL (0-1.3); Monocytes % (auto) 9.9 % (0.0-12.0); Neutrophils # (auto) 2.9 10 ^3/uL (1.6-8.6); Neutrophils % (auto) 45.3 % (37.0-80.0); Nucleated Red Blood Cells % 0.2 %; Red Blood Cells 4.25 10^6/uL (4.0-5.20); Red Cell Distribution Width 14.9 % (11.8-14.3); White Blood Cell 6.4 10^3/uL (4.4-10.8)
[2022-02-14 07:26] LABS: Potassium 4.7 mmol/L (3.5-5.1)
[2022-02-14 07:27] LABS: BUN/Creatinine Ratio 21.9; Calcium 9.1 mg/dL (8.5-10.1)
[2022-02-14 09:00] VITALS: BP 134/99
[2022-02-14] MEDS: FUROSEMIDE 20 MG TAB PO SCH (09:06)
[2022-02-14] MEDS: PANTOPRAZOLE 40 MG TAB PO SCH ×2 (09:06→21:45)
[2022-02-14] MEDS: amLODIPine BESYLATE 5 MG TAB PO SCH (09:07)
[2022-02-14] MEDS: METOPROLOL TARTRATE 25 MG TAB PO SCH ×2 (09:07→21:46)
[2022-02-14] MEDS: levoFLOXacin 250MG 50 ML IV SCH (09:08)
[2022-02-14] MEDS: MUPIROCIN 2% OINT 15gm or 22gm FOR MRSA NARES EACHNOSTRI SCH ×2 (11:53→21:47)
[2022-02-14 13:00] VITALS: BP 119/64
[2022-02-14 17:00] VITALS: BP 101/48
[2022-02-14] MEDS: DONEPEZIL HYDROCHLORIDE 5 MG TAB PO SCH (21:44)
[2022-02-14] MEDS: ATORVASTATIN 20 MG TAB PO SCH (21:45)
[2022-02-14 22:00] VITALS: BP 119/66
[2022-02-15 05:00] VITALS: BP 135/73
[2022-02-15 05:42] LABS: Basophils # (auto) 0 10 ^3/uL (0-0.2); Basophils % (auto) 0.8 % (0.0-2.0); Eosinophils # (auto) 0.1 10 ^3/uL (0-0.8); Eosinophils % (auto) 2.1 % (0.0-7.0); Hemoglobin 12.2 g/dL (12.2-16.2); Lymphocytes # (auto) 2.8 10 ^3/uL (0.4-5.4); Lymphocytes % (auto) 43.5 % (10.0-50.0); Mean Corpuscular Hemoglobin 27.7 pg (28.0-32.0); Mean Corpuscular Volume 86.6 fL (80.0-100.0); Monocytes # (auto) 0.6 10 ^3/uL (0-1.3); Neutrophils # (auto) 2.8 10 ^3/uL (1.6-8.6); Neutrophils % (auto) 43.6 % (37.0-80.0); Nucleated Red Blood Cells % 0.2 %; Red Blood Cells 4.39 10^6/uL (4.0-5.20); White Blood Cell 6.4 10^3/uL (4.4-10.8)
[2022-02-15 05:48] LABS: BUN/Creatinine Ratio 22.8; Calcium 9.3 mg/dL (8.5-10.1)
[2022-02-15] MEDS: BENZTROPINE MESY 0.5 MG TAB PO SCH ×3 (06:17→22:15)
[2022-02-15] MEDS: SUCRALFATE 1 GM/10 ML ORAL SUSP PO SCH ×4 (06:17→22:13)
[2022-02-15] MEDS: MUPIROCIN 2% OINT 15gm or 22gm FOR MRSA NARES EACHNOSTRI SCH ×2 (06:17→22:15)
[2022-02-15 08:30] VITALS: BP 134/73
[2022-02-15 09:00] VITALS: BP 134/73
[2022-02-15] MEDS: levoFLOXacin 250MG 50 ML IV SCH (10:59)
[2022-02-15] MEDS: METOPROLOL TARTRATE 25 MG TAB PO SCH ×2 (11:00→22:14)
[2022-02-15] MEDS: FUROSEMIDE 20 MG TAB PO SCH (11:01)
[2022-02-15] MEDS: PANTOPRAZOLE 40 MG TAB PO SCH ×2 (11:01→22:15)
[2022-02-15] MEDS: amLODIPine BESYLATE 5 MG TAB PO SCH (11:01)
[2022-02-15 13:00] VITALS: BP_SYST 115; BP_SYST 95; BP_DIAS 65; BP_DIAS 74
[2022-02-15 17:00] VITALS: BP_SYST 0; BP_SYST 113; BP_DIAS 58
[2022-02-15 22:00] VITALS: BP 117/62
[2022-02-15] MEDS: DONEPEZIL HYDROCHLORIDE 5 MG TAB PO SCH (22:13)
[2022-02-15] MEDS: ATORVASTATIN 20 MG TAB PO SCH (22:15)
[2022-02-15] MEDS: TEMAZEPAM 15 MG CAP PO PRN (23:30)
[2022-02-16 05:00] VITALS: BP 134/70
[2022-02-16] MEDS: SUCRALFATE 1 GM/10 ML ORAL SUSP PO SCH ×3 (06:19→16:09)
[2022-02-16] MEDS: BENZTROPINE MESY 0.5 MG TAB PO SCH ×2 (06:19→16:08)
[2022-02-16 07:30] VITALS: BP 115/54
[2022-02-16 09:00] VITALS: BP 146/70
[2022-02-16] MEDS ORDERED: cefTRIAXone 1GM/50ML D5W 50 ML IV SCH (09:00)
[2022-02-16] MEDS: PANTOPRAZOLE 40 MG TAB PO SCH (09:59)
[2022-02-16] MEDS: amLODIPine BESYLATE 5 MG TAB PO SCH (09:59)
[2022-02-16] MEDS: FUROSEMIDE 20 MG TAB PO SCH (09:59)
[2022-02-16] MEDS: METOPROLOL TARTRATE 25 MG TAB PO SCH (09:59)
[2022-02-16] MEDS: MUPIROCIN 2% OINT 15gm or 22gm FOR MRSA NARES EACHNOSTRI SCH (11:18)
[2022-02-16 13:00] VITALS: BP 109/50
[2022-02-16 16:40] VITALS: BP 109/50
[2022-02-16 17:00] VITALS: BP 118/58
== END 2022-02-16 20:20 | DRG 392 ==
LOC: ER 11:16 → EDBD 11:16 → OVERFLOW 21:00 → CENTRAL 23:20
PROVIDERS: ADMIT Nurse Practitioner; ATTEND Internal Medicine Pulmonary Disease
DX: K29.70 Gastritis, unspecified, without bleeding (principal); N39.0 Urinary tract infection, site not specified; I13.0 Hypertensive heart and chronic kidney disease with heart failure and stage 1 through stage 4 chronic kidney disease, or unspecified chronic kidney disease; J44.9 Chronic obstructive pulmonary disease, unspecified; I50.9 Heart failure, unspecified; E78.5 Hyperlipidemia, unspecified; G20 Parkinson's disease; R07.9 Chest pain, unspecified; B96.20 Unspecified Escherichia coli [E. coli] as the cause of diseases classified elsewhere; F41.9 Anxiety disorder, unspecified; F32.A Depression, unspecified; N18.9 Chronic kidney disease, unspecified; Z20.822 Contact with and (suspected) exposure to COVID-19; E11.22 Type 2 diabetes mellitus with diabetic chronic kidney disease; F02.80 Dementia in other diseases classified elsewhere, unspecified severity, without behavioral disturbance, psychotic disturbance, mood disturbance, and anxiety; Z82.49 Family history of ischemic heart disease and other diseases of the circulatory system; Z86.73 Personal history of transient ischemic attack (TIA), and cerebral infarction without residual deficits; Z90.710 Acquired absence of both cervix and uterus; Z88.1 Allergy status to other antibiotic agents; Z88.0 Allergy status to penicillin; Z88.8 Allergy status to other drugs, medicaments and biological substances
CPT/HCPCS: 36415; 71045; 74176; 80048; 80053; 81001; 83605; 83690; 83880; 84484; 85025; 87081; 87086; 87088; 87186; 87426; 92610; 93005; 97163; G0378; J0696; J1956